=== PATIENT | female | born 1960 | race Caucasian/White ===

== ENCOUNTER 2017-07-05 09:53 | Day surgery (SDC) | payer MEDICARE ==
[~2017-07-05] VITALS: Ht 162.6 cm; Wt 79.6 kg
[~2017-07-05 09:53] MED LIST: Bactrim 400-801 EACH PO; DICL25ER; GABA300; HYDR25SUP PR; LEVSOD137 PO; LEVSOD150 PO; Mucinex600 MG PO; Norco 5-325 Ta1 EACH PO; SIME80CH PO
[2017-07-05] MEDS ORDERED: GABA100 (10:57)
== END 2017-07-05 12:38 | disposition home or self-care (01) ==
LOC: ORSCSDS 09:53
PROVIDERS: Surgery
PROC: 0DJD8ZZ Inspection of Lower Intestinal Tract, Via Natural or Artificial Opening Endoscopic (ICD-10-PCS; principal; 2017-07-05 11:00)
DX: Z12.11 Encounter for screening for malignant neoplasm of colon (principal); K57.30 Diverticulosis of large intestine without perforation or abscess without bleeding; Z86.010 Personal history of colon polyps; J44.9 Chronic obstructive pulmonary disease, unspecified; F32.89 Other specified depressive episodes; E03.9 Hypothyroidism, unspecified; Z79.899 Other long term (current) drug therapy

== ENCOUNTER 2017-11-09 13:25 | Emergency (ER) | payer MEDICARE ==
[~2017-11-09] VITALS: Ht 162.6 cm; Wt 80.3 kg
[~2017-11-09 13:25] MED LIST changes: +GABA100
[2017-11-09] MEDS ORDERED: BACL10 PO (13:38)
[2017-11-09] MEDS ORDERED: Norco 5-325 Ta1 EACH PO (15:09)
[2017-11-09] MEDS ORDERED: Colace100 MG PO (15:09)
== END 2017-11-09 15:14 | disposition home or self-care (01) ==
LOC: ER 13:25
DX: S52.572A Other intraarticular fracture of lower end of left radius, initial encounter for closed fracture (principal); W11.XXXA Fall on and from ladder, initial encounter; Z91.011 Allergy to milk products; Z91.048 Other nonmedicinal substance allergy status; Z88.1 Allergy status to other antibiotic agents; Z88.8 Allergy status to other drugs, medicaments and biological substances; Z79.899 Other long term (current) drug therapy; Z87.891 Personal history of nicotine dependence
CPT/HCPCS: 29105; 73080; 73110; 99283-25

== ENCOUNTER 2020-08-19 18:50 | Emergency (ER) | payer MEDICARE ==
[~2020-08-19] VITALS: Ht 165.1 cm; Wt 78.9 kg
[~2020-08-19 18:50] MED LIST changes: +BACL10 PO; +Colace100 MG PO; -GABA100; +GABA100 PO
[2020-08-19] MEDS ORDERED: TOPI25 PO (20:01)
[2020-08-19] MEDS ORDERED: METF500 PO (20:02)
[2020-08-19] MEDS ORDERED: ACTOS PO (20:02)
[2020-08-19 21:06] LABS: BASOPHILS PERCENT AUTO 1 % (0-2); EOSINOPHILS ABSOLUTE AUTO 0.03 K/mm3 (0.00-0.68); EOSINOPHILS PERCENT AUTO 0 % (0-6); Hematocrit 48.5 % (33.0-51.0); Hemoglobin 16.7 g/dL (11.5-16.0); Mean Corpuscular HGB 30.8 pg (26.0-34.0); Mean Corpuscular HGB Conc 34.4 g/dL (31.5-36.5); Mean Corpuscular Volume 89 fL (80-100); Mean Platelet Volume 10.5 fL (9.1-12.4); Platelet Count 315 K/mm3 (150-400); RDW Coefficient Variation 13.6 % (11.7-14.2); Red Blood Cell Count 5.43 M/mm3 (3.80-5.20); White Blood Cell Count 15.06 K/mm3 (4.00-11.30)
[2020-08-19 21:08] LABS: IMMATURE GRAN ABSOLUTE AUTO 0.05 K/mm3 (0.00-0.10); IMMATURE GRAN PERCENT AUTO 0 % (0-1); LYMPHOCYTES ABSOLUTE AUTO 4.13 K/mm3 (0.84-5.20); LYMPHOCYTES PERCENT AUTO 27 % (21-46); MONOCYTES ABSOLUTE AUTO 1.61 K/mm3 (0.16-1.47); MONOCYTES PERCENT AUTO 11 % (4-13); NEUTROPHILS ABSOLUTE AUTO 9.14 K/mm3 (1.96-9.15); NEUTROPHILS PERCENT AUTO 61 % (41-73)
[2020-08-19 21:29] LABS: Alanine Aminotransfer (ALT/SGP 113 U/L (12-78); Albumin, Blood 4.1 g/dL (3.4-5.0); Albumin/Globulin Ratio 1.1 (0.8-1.8); Alk Phos 109 U/L (50-136); Anion Gap 6 mmol/L (6-16); Aspartate Aminotrans (AST/SGOT 61 U/L (12-37); Bilirubin, Total 0.5 mg/dL (0.1-1.0); Blood Urea Nitrogen 19 mg/dL (8-24); Bun/Creatinine Ratio 26.8 (12.0-20.0); CO2, Blood 27 mmol/L (21-32); Calcium, Blood 8.6 mg/dL (8.5-10.1); Chloride, Blood 109 mmol/L (98-108); Creatinine, Blood 0.71 mg/dL (0.40-1.00); Globulin, Blood 3.8 g/dL (2.2-4.0); Glomerular Filtration Rate >60 (60-); Glucose, Blood 107 mg/dL (70-99); Sodium, Blood 142 mmol/L (136-145); Total Protein, Blood 7.9 g/dL (6.4-8.2)
== END 2020-08-20 00:49 | disposition short-term general hospital (02) ==
LOC: ER 18:50
PROVIDERS: Emergency Medicine
DX: G93.89 Other specified disorders of brain (principal); R60.9 Edema, unspecified; Z79.899 Other long term (current) drug therapy
CPT/HCPCS: 70450; 80053; 85025; 96374; 96375; 99285-25; A9270-GY; J1100; J1885; J2765

== ENCOUNTER 2020-11-22 14:18 | Inpatient (IN) | payer MEDICARE ==
[~2020-11-22] VITALS: Ht 172.7 cm; Wt 90.7 kg
[~2020-11-22 14:18] MED LIST changes: +ACTOS PO; +METF500 PO; +TOPI25 PO
[2020-11-22 18:17] LABS: BASOPHILS ABSOLUTE AUTO 0.03 K/mm3 (0.00-0.23); BASOPHILS PERCENT AUTO 0 % (0-2); EOSINOPHILS ABSOLUTE AUTO 0.01 K/mm3 (0.00-0.68); EOSINOPHILS PERCENT AUTO 0 % (0-6); Hematocrit 41.3 % (33.0-51.0); Hemoglobin 13.8 g/dL (11.5-16.0); IMMATURE GRAN ABSOLUTE AUTO 0.07 K/mm3 (0.00-0.10); IMMATURE GRAN PERCENT AUTO 0 % (0-1); LYMPHOCYTES ABSOLUTE AUTO 0.77 K/mm3 (0.84-5.20); LYMPHOCYTES PERCENT AUTO 5 % (21-46); MONOCYTES ABSOLUTE AUTO 1.48 K/mm3 (0.16-1.47); MONOCYTES PERCENT AUTO 9 % (4-13); Mean Corpuscular HGB 29.7 pg (26.0-34.0); Mean Corpuscular HGB Conc 33.4 g/dL (31.5-36.5); Mean Corpuscular Volume 89 fL (80-100); Mean Platelet Volume 9.8 fL (9.1-12.4); NEUTROPHILS ABSOLUTE AUTO 14.38 K/mm3 (1.96-9.15); NEUTROPHILS PERCENT AUTO 86 % (41-73); Platelet Count 166 K/mm3 (150-400); RDW Coefficient Variation 13.9 % (11.7-14.2); RDW Standard Deviation 45.1 fL (35.1-46.3); Red Blood Cell Count 4.65 M/mm3 (3.80-5.20); White Blood Cell Count 16.74 K/mm3 (4.00-11.30)
[2020-11-22 18:33] LABS: Alanine Aminotransfer (ALT/SGP 71 U/L (12-78); Albumin, Blood 3.4 g/dL (3.4-5.0); Albumin/Globulin Ratio 1.1 (0.8-1.8); Alk Phos 86 U/L (50-136); Anion Gap 4 mmol/L (6-16); Aspartate Aminotrans (AST/SGOT 37 U/L (12-37); Bilirubin, Total 0.4 mg/dL (0.1-1.0); Blood Urea Nitrogen 12 mg/dL (8-24); Bun/Creatinine Ratio 22.5 (12.0-20.0); CO2, Blood 27 mmol/L (21-32); Calcium, Blood 8.5 mg/dL (8.5-10.1); Chloride, Blood 111 mmol/L (98-108); Creatinine, Blood 0.53 mg/dL (0.40-1.00); Globulin, Blood 3.2 g/dL (2.2-4.0); Glomerular Filtration Rate >60 (60-); Glucose, Blood 113 mg/dL (70-99); Potassium, Blood 3.8 mmol/L (3.5-5.5); Sodium, Blood 142 mmol/L (136-145); Total Protein, Blood 6.6 g/dL (6.4-8.2)
[2020-11-22 21:04] LABS: Magnesium, Blood 1.9 mg/dL (1.6-2.4)
[2020-11-22 22:18] LABS: Source, Urine Catheter
[2020-11-22 22:20] LABS: Bilirubin, Urine Neg (Neg); Blood, Urine 1+ (Neg); Glucose Qualitative, Urine 2+ (Neg); Ketones, Urine 3+ (Neg); Leukocyte Esterase, Urine Neg (Neg); Nitrite, Urine Neg (Neg); Protein, Urine 1+ (Neg); Urobilinogen, Urine NORM (Normal)
[2020-11-22 22:40] LABS: Appearance, Urine Clear (Clear); Color, Urine Yellow (P-Yellow)
[2020-11-22 22:41] LABS: Amorphous Light (0-Heavy); Bacteria Rare /hpf; Red Blood Cells, Urine 0-2 /hpf (0-2); Squamous Epithelial Cells Mod /hpf (Few); U Amphetamine Screen Not Detected; U Barbituate Screen Not Detected; U Benzodiazapine Screen DETECTED; U Buprenorphine Screen Not Detected; U Cannabinoids Screen DETECTED; U Cocaine Screen Not Detected; U Methadone Screen Not Detected; U Methamphetamine Screen Not Detected; U Opiates Screen Not Detected; U Oxycodone Screen Not Detected; U Phencyclidine Screen Not Detected; U Propoxyphene Screen Not Detected; White Blood Cells, Urine Rare /hpf (0-5)
[2020-11-23 03:51] LABS: Hematocrit 38.8 % (33.0-51.0); Hemoglobin 12.9 g/dL (11.5-16.0); Mean Corpuscular HGB 29.5 pg (26.0-34.0); Mean Corpuscular HGB Conc 33.2 g/dL (31.5-36.5); Mean Corpuscular Volume 89 fL (80-100); Mean Platelet Volume 10.3 fL (9.1-12.4); Platelet Count 154 K/mm3 (150-400); RDW Coefficient Variation 13.9 % (11.7-14.2); RDW Standard Deviation 45.1 fL (35.1-46.3); Red Blood Cell Count 4.37 M/mm3 (3.80-5.20); White Blood Cell Count 12.86 K/mm3 (4.00-11.30)
[2020-11-23 04:17] LABS: Anion Gap 6 mmol/L (6-16); Blood Urea Nitrogen 13 mg/dL (8-24); CO2, Blood 26 mmol/L (21-32); Calcium, Blood 8.6 mg/dL (8.5-10.1); Chloride, Blood 110 mmol/L (98-108); Creatinine, Blood 0.59 mg/dL (0.40-1.00); Glomerular Filtration Rate >60 (60-); Glucose, Blood 95 mg/dL (70-99); Potassium, Blood 3.7 mmol/L (3.5-5.5); Sodium, Blood 142 mmol/L (136-145)
--- NOTE | 2020-11-23 06:17 | NUR ---
SHIFT SUMMARY PATIENT ADMITTED TO FLOOR AT APPROXIMETLY 2129. AMS WITH PATIENT INTERMITTENTLY RESTLESS/THRASHING IN BED AND OTHER TIMES SNORING SLEEPING HARD. ORIENTED X2-3 AND FOLLOWING SOME COMMANDS BUT NOT MOST. DOES NOT KNOW LIMITATIONS. PRN ATIVAN X1 GIVEN FOR AGITATION AND RESTRAINTS APPLIED PATIENT NOT COOPERATIVE AND TRYING TO GET OUT OF BED REPEATEDLY. MANSOOR VEST STILL IN PLACE AT THIS TIME. NAGY. NEURO CHECKS WITH NO ACUTE CHANGES. SEIZURE PRECAUTIONS IN PLACE. VSS. ON RA. NSR ON THE MONITOR. GUTIERREZ IN PLACE DRAINING TO GRAVITY. HAS NOT BEEN ALERT ENOUGH TO TRIAL SWALLOW TEST OF YET. LR INFUSING PER ORDER.NO ACUTE CONCERNS AT THIS TIME. WILL CONTINUE TO MONITOR UNTIL REPORT GIVEN TO DAYSHIFT RN.
--- NOTE | 2020-11-23 18:48 | NUR ---
PT REQUESTED TO HAVE GUTIERREZ D/C'ED, DR. DUARTE PROVIDED SUPPORT FOR THIS INTERVENTION, GUTIERREZ D/C'ED AT 0923, PT PASSED BEDSIDE SWALLOW SCREEN AT 0930 AND TOLERATED THIN LIQUIDS AND WHOLE PO PILLS, PT NEURO STATUS ASSESSED Q4H RECORDED IN EHR, PT'S SON CALLED AT 1051 AND 1804 FOR UPDATES AND REPORTS NO ADDITIONAL QUESTIONS AT THIS TIME, PT'S MANSOOR GARCIA D/C'ED AT 1815, PT'S VSS, PT NAGY AND USES BEDPAN MODERATELY APPROPRIATELY, PT USES CALL LIGHT APPROPRIATELY, PT DENIES ADDITIONAL CONCERNS AT THIS TIME
--- NOTE | 2020-11-24 05:02 | NUR ---
SHIFT SUMMARY PATIENT FOUND TO BE VERY DROWSY BUT ORIENTED X3, COMPLIANT WITH CARE AND FOLLOWING COMMANDS. STILL FORGETFUL AT TIMES AND IMPULSIVELY GETS UP TO PEE OFTEN. STEADY ON HER FEET.NO DIZZINESS OR VISION ISSUES. COMPLAINTS OF LEFT SIDE HEADACHE WITH GOOD RELIEF WITH NAPROXEN X1. LEFT SIDED FACIAL DROOP IMPROVING. NEURO CHECKS Q4H UNCHANGED. VSS. ON RA. NSR ON THE MONITOR. ENCOURAGING ORAL INTAKE WHEN ALERT. TAKING ORAL MEDS WITHOUT ISSUE. URGENCY AND FREQUENCY OF URINATION NOTED. UP WITH [facility]BA TO [facility] [place]. SHE IS HOPING TO GO HOME TODAY. NO ACUTE CONCERNS AT THIS TIME. WILL CONTINUE TO MONITOR UNTIL REPORT GIVEN TO JOSUE MENDENHALL.
[2020-11-24] MEDS ORDERED: LEVE500 PO (10:35)
[2020-11-24] MEDS ORDERED: Diclofenac Sodi50 MG PO (10:35)
[2020-11-24] MEDS ORDERED: PHARBEDRYL PO (10:36)
[2020-11-24] MEDS ORDERED: HYDHCL25 PO (11:37)
--- NOTE | 2020-11-24 12:42 | NUR ---
DISCHARGE SUMMARY PT A&OX4, VSS, SHOWERED TODAY, RHETT PO INTAKE, VOIDING WELL, INDEPENDENT IN ROOM. LEFT FLOOR VIA WC WITH VBA DEVELOPER, TO GO HOME WITH SON, WITH ALL PERSONAL POSSESSIONS INCLUDING DC PACKET. SCRIPTS CALLED IN TO PHARMACIST BY NADIR MENDENHALL. DC INSTRUCTIONS PROVIDED. PT REP UNDERSTANDING THOSE INSTRUCTIONS INCLUDING FU WITH [facility] , AND FU WITH PCP. IV DC'D.
== END 2020-11-24 12:38 | disposition home or self-care (01) | DRG 101 ==
LOC: ER 14:18 → PCU 14:19
PROVIDERS: Emergency Medicine; Nurse Practitioner Acute Care; ADMIT Internal Medicine
DX: G40.909 Epilepsy, unspecified, not intractable, without status epilepticus (principal); R65.10 Systemic inflammatory response syndrome (SIRS) of non-infectious origin without acute organ dysfunction; E11.9 Type 2 diabetes mellitus without complications; E89.0 Postprocedural hypothyroidism; Z79.84 Long term (current) use of oral hypoglycemic drugs; Z90.710 Acquired absence of both cervix and uterus; Z98.890 Other specified postprocedural states; Z88.1 Allergy status to other antibiotic agents; Z91.011 Allergy to milk products; Z91.048 Other nonmedicinal substance allergy status; Z79.899 Other long term (current) drug therapy
CPT/HCPCS: 36415; 51702; 70450; 71045; 80048; 80053; 81001; 82947; 83735; 84443; 85025; 85027; 93005; 93010; 96365; 96375; 96376; 99285-25; A9270; G0378; J1885; J1953; J2060; J7120

== ENCOUNTER 2021-02-14 10:33 | Inpatient (IN) | payer MEDICARE ==
[~2021-02-14] VITALS: Ht 165.1 cm; Wt 67.0 kg
[~2021-02-14 10:33] MED LIST changes: +Diclofenac Sodi50 MG PO; +HYDHCL25 PO; +LEVE500 PO; +PHARBEDRYL PO
[2021-02-14 11:57] LABS: BASOPHILS ABSOLUTE AUTO 0.04 K/mm3 (0.00-0.23); BASOPHILS PERCENT AUTO 0 % (0-2); EOSINOPHILS ABSOLUTE AUTO 0.03 K/mm3 (0.00-0.68); EOSINOPHILS PERCENT AUTO 0 % (0-6); Hematocrit 48.3 % (33.0-51.0); Hemoglobin 16.5 g/dL (11.5-16.0); IMMATURE GRAN ABSOLUTE AUTO 0.23 K/mm3 (0.00-0.10); IMMATURE GRAN PERCENT AUTO 2 % (0-1); LYMPHOCYTES ABSOLUTE AUTO 0.91 K/mm3 (0.84-5.20); LYMPHOCYTES PERCENT AUTO 7 % (21-46); MONOCYTES ABSOLUTE AUTO 0.94 K/mm3 (0.16-1.47); MONOCYTES PERCENT AUTO 7 % (4-13); Mean Corpuscular HGB 30.5 pg (26.0-34.0); Mean Corpuscular HGB Conc 34.2 g/dL (31.5-36.5); Mean Corpuscular Volume 89 fL (80-100); Mean Platelet Volume 10.1 fL (9.1-12.4); NEUTROPHILS ABSOLUTE AUTO 11.38 K/mm3 (1.96-9.15); NEUTROPHILS PERCENT AUTO 84 % (41-73); Platelet Count 277 K/mm3 (150-400); RDW Coefficient Variation 14.9 % (11.7-14.2); RDW Standard Deviation 48.7 fL (35.1-46.3); Red Blood Cell Count 5.41 M/mm3 (3.80-5.20); White Blood Cell Count 13.53 K/mm3 (4.00-11.30)
[2021-02-14 12:08] LABS: Alanine Aminotransfer (ALT/SGP 69 U/L (12-78); Albumin, Blood 3.6 g/dL (3.4-5.0); Albumin/Globulin Ratio 0.9 (0.8-1.8); Alk Phos 73 U/L (50-136); Anion Gap 8 mmol/L (6-16); Aspartate Aminotrans (AST/SGOT 29 U/L (12-37); Bilirubin, Total 0.6 mg/dL (0.1-1.0); Blood Urea Nitrogen 24 mg/dL (8-24); Bun/Creatinine Ratio 46.8 (12.0-20.0); CO2, Blood 28 mmol/L (21-32); Calcium, Blood 9.3 mg/dL (8.5-10.1); Chloride, Blood 105 mmol/L (98-108); Creatinine, Blood 0.51 mg/dL (0.40-1.00); Globulin, Blood 3.8 g/dL (2.2-4.0); Glomerular Filtration Rate >60 (60-); Glucose, Blood 157 mg/dL (70-99); Potassium, Blood 4.2 mmol/L (3.5-5.5); Sodium, Blood 141 mmol/L (136-145); Total Protein, Blood 7.4 g/dL (6.4-8.2)
[2021-02-14 14:09] LABS: Source, Urine Voided
[2021-02-14 14:15] LABS: Appearance, Urine Clear (Clear); Bilirubin, Urine Neg (Neg); Blood, Urine Neg (Neg); Color, Urine Yellow (P-Yellow); Glucose Qualitative, Urine Neg (Neg); Ketones, Urine Neg (Neg); Leukocyte Esterase, Urine 1+ (Neg); Nitrite, Urine Neg (Neg); Protein, Urine 1+ (Neg); Specific Gravity, Urine 1.025 (1.003-1.022); Urobilinogen, Urine NORM (Normal)
[2021-02-14 14:23] LABS: Bacteria Many /hpf
[2021-02-14 14:24] LABS: Squamous Epithelial Cells Mod /hpf (Few)
[2021-02-14 14:27] LABS: Red Blood Cells, Urine 0-2 /hpf (0-2)
[2021-02-14 14:39] LABS: SARS-Cov-2 (COVID-19) PCR, MMC NEGATIVE (NEGATIVE)
[2021-02-14] MEDS ORDERED: DEXA4 (14:45)
[2021-02-14] MEDS ORDERED: PIOG30 (14:45)
[2021-02-14] MEDS ORDERED: TEMODAR (14:46)
[2021-02-14] MEDS ORDERED: 1/2 NS 250ml250 ML (14:46)
[2021-02-14] MEDS ORDERED: ONDA4 (14:46)
--- NOTE | 2021-02-15 01:59 | NUR ---
CODE STATUS CHANGE PRIOR TO PLACING DNR BAND ON PT, RN CLARIFIED WITH PT WHETHER SHE WOULD LIKE CHEST COMPRESSIONS OR SPECIFIC INTERVENTIONS. PT STATED THAT SHE WANTS COMPRESSIONS, BUT DOES NOT WANT TO BE INTUBATED. CODE STATUS UPDATED.
--- NOTE | 2021-02-15 02:00 | NUR ---
ADMISSION NOTE PT ARRIVES TO MEDICAL FLOOR AT 20:00 02/14 - WITH THE HELP OF A TRANSFER SHEET AND TWO STAFF MEMBERS, PT IS TRANSFERRED FROM [facility] TO MEDICAL BED. PT HAS FLACCID LEFT LEG, AND WEAK LEFT ARM. SHE IS ALERT & ORIENTED X4, HOWEVER SHE IS IMPULSIVE WITH TRANSFERS. PT IS MOTIVATED TO BE INDEPENDENT, BUT URINARY URGENCY AND FREQUENCY MAKE HER TRY TO TRANSFER WITHOUT WAITING FOR STAFF TO ASSIST. BED ALARM IS ON. PT EDUCATED THAT SHE NEEDS TO USE CALL LIGHT AND FOLLOW CUES FROM STAFF IN ORDER TO REMAIN SAFE DURING TRANSERS. PT SLEPT MOST OF THE SHIFT SO FAR, WILL CONTINUE TO MONITOR.
--- NOTE | 2021-02-15 03:54 | NUR ---
SHIFT SUMMARY PT WITH CONTINUED URINARY FREQUENCY AND URGENCY. DENIES DYSURIA. C/O PAIN TO HER BACK AND LEFT SIDE, WHICH WAS INJURED IN FALL EXECUTIVE CANDIDATE DEVELOPER. PT STATES THAT SHE HAS NO HOME MEDICATIONS WITH HER, NOTHING TO SEND TO PHARMACY FOR VERIFICATION. IS USING CALL LIGHT TO CALL FOR ASSISTANCE WITH BSC. NEURO CHECKS Q 4 HOURS SHOW LEFT LEG PROGRESSED FROM FLACCID TO LIMITED FLEXION/EXTENSION, STILL UNABLE TO BEAR WEIGHT. LEFT ARM IS WEAK. VSS.
[2021-02-15 05:30] LABS: Thyroid Stimulating Hormone 0.023 uIU/mL (0.360-4.800); Thyroxine (T4) 12.1 ug/dL (4.8-13.9)
--- NOTE | 2021-02-15 16:48 | NUR ---
SHIFT SUMMARY PT AWAKE AT START OF SHIFT. A&O, BUT VERY IMPULSIVE. PT ADMITTED ON NOC SHIFT FOR STROKE SHOWING L SIDE WEAKNESS TO BOTH EXTREMITIES WITH L FACIAL DROOP. BRUISING TO L HIP AND BACK FROM FALLS AT HOME. PER REPORT, PT LIVES WITH SON, WHO NOW HAS COVID. PT ABLE TO WORK WITH P/T TODAY BUT DOES NOT USE L LEG AT ALL TO MOVE OR BEAR WT. PT HAS SPASTIC MOTOR SKILLS TO L ARM AND L LEG. WANTING TO GO HOME ALL DAY. FREQUENTLY OOB, TRYING TO GET UP AND CONSTANTLY SETTING OFF BED ALARM. PT VERY IMPULSIVE AND FAST; PT WILL NOT WAIT FOR ASSISTANCE FOR EVEN ONE SEC. DR GUADALUPE JUST NOTIFIED AGAIN FOR VEST RESTRAINT FOR PT SAFETY. PT IS 2P ASSIST TO BSC AND BACK TO BED D/T L LEG. VEST RESTRAINT PLACED AFTER RETURNING TO BED. RESTING QUIETLY WITH CALL LT IN REACH. BED ALARM REMAINS ON FOR SAFETY.
--- NOTE | 2021-02-16 05:29 | NUR ---
SHIFT SUMMARY PT IN [facility] ([place], [place]). AT 0200, RN RESPONDED TO BED ALARM AND DISCOVERED PT HAD PULLED THE BSC CLOSER TO BED AND WAS ATTEMPTING TO EXIT THE BED. WHEN REMINDED TO USE THE CALL LIGHT AND WAIT FOR STAFF TO RESPOND, PT STATED SHE DIDN'T REMEMBER TO CALL. PT REQUIRES RESTRAINT TO REMAIN SAFE, IMPULSIVITY MAKES HER AT HIGH RISK FOR FALLS. LEFT ARM IS WEAK, LEFT LEG IS FLACCID. SHE IS ORIENTED TO SELF, FAMILY, AND LOCATION. NOT ORIENTED TO HER OWN ABILITIES. PT SLEPT MOST OF THE SHIFT. BED ALARM ON, IN LOWEST POSITION, CALL LIGHT WITHIN REACH.
--- NOTE | 2021-02-16 11:18 | NUR ---
NOTIFIED DR. GUADALUPE OF URINE CX REPORT. NO NEW ORDERS AT THIS TIME.
--- NOTE | 2021-02-16 17:19 | NUR ---
Pt currently lives at home, has a boyfriend and a best freind to assist her with ADL's. She is s/p stoke with plan to d/c to an IRU to gain exersize and possibly regain L sided strength and balance, including ambulation. So far, unsure if she'll be doing rehab at a local facility so she won't be so far away. Hower, she is determined to go, and gain strengs. Pt is pleasant, cooperative with care. Her friend is present for this visit, and assures me that pt will have her help when she returns home. Pt has DNR status.
--- NOTE | 2021-02-16 18:29 | NUR ---
SHIFT SUMMARY: PT A/O ONE PERSON ASSIST WITH GAIT BELT/WALKER AND CUES TO LIFT LEFT FOOT AND SLOW DOWN WALKING SO LEFT FOOT DOES NOT DRAG BEHIND HER. PT ABLE TO UNDERSTAND COMMANDS AND FOLLOWS COMMANDS. SHE DOES HAVE FREQUENCY WITH URINATION AND IS UP A LOT T/OUT THE DAY AND NEEDS FREQUENT REMINDERS TO USE CALL LIGHT. PT HAS BEEN OUT OF VEST RESTRAINT SINCE 9:45 AM TODAY. URINE IS CLEAR YELLOW. PT EATING WELL WITH NO S/S OF DIFFICULTY CHEWING OR SWALLOWING FOOD OR MEDICATIONS. NO OTHER ACUTE CONCERNS AT THIS TIME.
--- NOTE | 2021-02-17 04:40 | NUR ---
END OF SHIFT SUMMARY: Pt alert and oriented x4. Impulsive, gets out of bed without calling. Still having frequency. L sided weakness, making pt unsteady on feet. One person assist to bathroom or BSC. No complaints of pain tonight. No acute events overnight. Call light within reach. Taking pt to bathroom often to minimize pt getting out of bed. Bed in lowest position. Seizure precautions in place. TM
--- NOTE | 2021-02-17 10:30 | NUR ---
OFFERED FLU VACCINE TO PT AND SHE REFUSED VACCINE.
[2021-02-17 14:54] LABS: CHOL/HDL RATIO 2.2; Cholesterol 111 mg/dL (50-200); HDL Cholesterol 50 mg/dL (>39); LDL/HDL RATIO 0.9; Low Density Lipoprotein Chol 43 mg/dL (0-110); Triglycerides 88 mg/dL (30-160); Very Low Density Lipoprot Chol 17 mg/dL (6-32)
--- NOTE | 2021-02-17 17:29 | NUR ---
SHIFT SUMMARY: PT A/O X 3 STANDBY ASSIST WITH WALKER AND GAIT BELT. PT LESS IMPULSIVE TODAY AND USING CALL LIGHT MORE APPROPRIATELY. CONTINUES TO NEED TO USE BATHROOM TO URINATE EVERY 30 MIN TO ONE HOUR. ENCOOURAGING HER TO DRINK FLUIDS. SHE DENIES SYMTPOMS OF URGENCY, BURNING, PAIN WITH URINATION. ABD NON DISTENDED. PT REMEMBERING TO LIFT HER LEFT FOOT AND SLOW HER WALKING SO SHE IS NOT SO UNSTEADY ON HER FEET. SHE HAS BEEN FOLLOWING DIRECTIONS WELL TODAY. PT EAGER TO BE DISCHARGED.
--- NOTE | 2021-02-18 04:14 | NUR ---
END OF SHIFT SUMMARY: No acute events overnight. Pt is still impulsive and getting out of bed without using call light. Reinforced education on importance of waiting for help before getting out of bed, demonstrated understanding, bed alarm in place, call light within reach. Bed in lowest position. VSS.
--- NOTE | 2021-02-18 18:52 | NUR ---
PATIENT IS ALERT AND ORIENTED X 4. SHE DENIES PAIN. VERY SPONTANEOUS WITH GETTING OUT OOB WITHOUT ASSIST. BED ALARM ON. SHE IS AMBULATORY WITH FRONT WHEEL WALKER AND STAND BY ASSIST. SHE IS CALM AND COOPERATIVE. SHE DOES NOT APPEAR TO BE IN ACUTE DISTRESS. SHE HAD AN UNEVENTFUL DAY.
--- NOTE | 2021-02-19 05:24 | NUR ---
END OF SHIFT SUMMARY: Pt A&Ox3. Requiring frequent reinforcement of teaching. Pt is a one person assist. Frequently forgets to ask for help beofe getting up, pt teaching provided. Rounding on pt often to take her to bathroom to minimize episodes of getting up without help. Pt is pleasant. No new complaints overnight. Call light within reach, bed in lowest position. Continue to minitor.
--- NOTE | 2021-02-19 17:28 | NUR ---
SHIFT SUMMARY PATIENT IS ALERT AND ORIENTED X3. PATIENT IS VERY IMPULSIVE AND GETS OUT OF BED FREQUENTLY WITHOUT USING CALL LIGHT. PATIENT HAS LEFT SIDED WEAKNESS FROM STROKE. PATIENT IS A ONE PERSON ASSIST TO BATHROOM. PATIENT IS PLEASENT AND COOPERATIVE WITH CARE. PLAN IS FOR PATIENT TO DISCHARGE AND TRANSFER TO INPATIENT REHAB IN [place] TOMORROW. NO ACUTE EVENTS DURING SHIFT. WILL CONTINUE TO MONITOR UNTIL SHIFT CHANGE.
[2021-02-19 18:16] LABS: SARS-Cov-2 (COVID-19) PCR, MMC NEGATIVE (NEGATIVE)
--- NOTE | 2021-02-20 06:36 | NUR ---
END OF SHIFT SUMMARY: Pt slept better tonight. still having episodes of frequency and urgency. Still forgetting to use call light before getting up. Pt teaching given. Uneventful night. Call light within reach, bed in lowest position. Continue to monitor.
[2021-02-20] MEDS ORDERED: ACET500 PO (08:42)
[2021-02-20] MEDS ORDERED: ASPI81CH PO (08:42)
[2021-02-20] MEDS ORDERED: INSULANPEN SC (08:43)
[2021-02-20] MEDS ORDERED: HUMALOG KW100 UNIT/1 SC (08:45)
[2021-02-20] MEDS ORDERED: PRAV20 PO (08:45)
--- NOTE | 2021-02-20 11:25 | NUR ---
PT ALERT BUT NOT ORIENTED,PT IS VERY IMPULSIVE,PT UP TO BSC WITH WALKER AND 1 ASSIST.PT DENIES PAIN,N/V,SOB.PT HAS NO ACUTES EVENT T/O SHIFT.PT DISCHARGE ALL BELONGINGS PACK PT TRANSPORTED OUT VIA WHEELCHAIR,CALLED AND GAVE REPORT TO YESSICA
== END 2021-02-20 11:00 | DRG 64 ==
LOC: ER 10:33 → MEDS 10:34 → ER 20:01 → MEDS 20:08
PROVIDERS: Emergency Medicine; Family Medicine; Physician Assistant; ADMIT Internal Medicine
DX: I63.81 Other cerebral infarction due to occlusion or stenosis of small artery (principal); G93.6 Cerebral edema; G81.94 Hemiplegia, unspecified affecting left nondominant side; E11.9 Type 2 diabetes mellitus without complications; G40.909 Epilepsy, unspecified, not intractable, without status epilepticus; Z90.710 Acquired absence of both cervix and uterus; Z98.890 Other specified postprocedural states; Z66 Do not resuscitate; Z20.822 Contact with and (suspected) exposure to COVID-19; R91.1 Solitary pulmonary nodule; R29.810 Facial weakness; E89.0 Postprocedural hypothyroidism; Z85.850 Personal history of malignant neoplasm of thyroid; Z90.49 Acquired absence of other specified parts of digestive tract; Z91.040 Latex allergy status; Z88.1 Allergy status to other antibiotic agents; Z91.011 Allergy to milk products; Z79.899 Other long term (current) drug therapy; Z79.84 Long term (current) use of oral hypoglycemic drugs
CPT/HCPCS: 36415; 70450; 70496; 70498; 70551; 71045; 71250; 80053; 80061; 81001; 82947; 84145; 84436; 84443; 84484; 85025; 87077; 87086; 87186; 92507; 92523; 92610; 93005; 93010; 93306; 97110; 97112; 97116; 97129; 97130; 97162; 97166; 97530; 97535; 99285-25; A9270; G0378; J1650; J1815; J7030; Q9967; U0004

== ENCOUNTER 2021-04-02 17:13 | Emergency (ER) | payer MEDICARE, OTHER ==
[~2021-04-02] VITALS: Ht 167.6 cm; Wt 68.0 kg
[~2021-04-02 17:13] MED LIST changes: +1/2 NS 250ml250 ML; +ACET500 PO; +ASPI81CH PO; +DEXA4; +HUMALOG KW100 UNIT/1 SC; +INSULANPEN SC; +ONDA4; +PIOG30; +PRAV20 PO; +TEMODAR
== END 2021-04-02 20:10 | disposition home or self-care (01) ==
LOC: ER 17:13
DX: R51.9 Headache, unspecified (principal); Z88.8 Allergy status to other drugs, medicaments and biological substances; Z91.048 Other nonmedicinal substance allergy status; Z91.011 Allergy to milk products; Z79.899 Other long term (current) drug therapy; Z79.84 Long term (current) use of oral hypoglycemic drugs; Z79.4 Long term (current) use of insulin; E11.9 Type 2 diabetes mellitus without complications; Z87.891 Personal history of nicotine dependence
CPT/HCPCS: 70450; 96372; 99284-25; J3030

== ENCOUNTER 2021-04-22 21:37 | Emergency (ER) | payer MEDICARE, OTHER ==
[~2021-04-22] VITALS: Ht 167.6 cm; Wt 68.0 kg
[2021-04-22 23:16] LABS: BASOPHILS ABSOLUTE AUTO 0.07 K/mm3 (0.00-0.23); BASOPHILS PERCENT AUTO 1 % (0-2); EOSINOPHILS ABSOLUTE AUTO 0.01 K/mm3 (0.00-0.68); EOSINOPHILS PERCENT AUTO 0 % (0-6); IMMATURE GRAN ABSOLUTE AUTO 0.33 K/mm3 (0.00-0.10); IMMATURE GRAN PERCENT AUTO 2 % (0-1); LYMPHOCYTES ABSOLUTE AUTO 1.14 K/mm3 (0.84-5.20); LYMPHOCYTES PERCENT AUTO 7 % (21-46); MONOCYTES PERCENT AUTO 8 % (4-13); Mean Corpuscular HGB Conc 34.8 g/dL (31.5-36.5); Mean Corpuscular Volume 92 fL (80-100); NEUTROPHILS ABSOLUTE AUTO 12.58 K/mm3 (1.96-9.15); NEUTROPHILS PERCENT AUTO 82 % (41-73); Platelet Count 261 K/mm3 (150-400); RDW Coefficient Variation 13.8 % (11.7-14.2); RDW Standard Deviation 46.8 fL (35.1-46.3); White Blood Cell Count 15.33 K/mm3 (4.00-11.30)
[2021-04-22 23:35] LABS: Alanine Aminotransfer (ALT/SGP 83 U/L (12-78); Albumin, Blood 3.3 g/dL (3.4-5.0); Albumin/Globulin Ratio 0.9 (0.8-1.8); Alk Phos 80 U/L (50-136); Anion Gap 9 mmol/L (6-16); Aspartate Aminotrans (AST/SGOT 44 U/L (12-37); Bilirubin, Total 0.6 mg/dL (0.1-1.0); Blood Urea Nitrogen 13 mg/dL (8-24); Bun/Creatinine Ratio 25.5 (12.0-20.0); CO2, Blood 25 mmol/L (21-32); Calcium, Blood 8.6 mg/dL (8.5-10.1); Chloride, Blood 107 mmol/L (98-108); Creatinine, Blood 0.51 mg/dL (0.40-1.00); Ethanol (Alcohol), Blood, Med <3 mg/dL; Free Thyroxine 1.07 ng/dL (0.70-1.60); Globulin, Blood 3.6 g/dL (2.2-4.0); Glomerular Filtration Rate >60 (60-); Glucose, Blood 163 mg/dL (70-99); Sodium, Blood 141 mmol/L (136-145); Total Protein, Blood 6.9 g/dL (6.4-8.2)
[2021-04-23 03:19] LABS: Source, Urine Catheter
[2021-04-23 03:23] LABS: Bilirubin, Urine Neg (Neg); Blood, Urine Neg (Neg); Glucose Qualitative, Urine Neg (Neg); Ketones, Urine Neg (Neg); Leukocyte Esterase, Urine Neg (Neg); Nitrite, Urine Neg (Neg); Protein, Urine Neg (Neg); Specific Gravity, Urine 1.015 (1.003-1.022); Urobilinogen, Urine NORM (Normal)
[2021-04-23 03:35] LABS: Appearance, Urine Clear (Clear); Color, Urine Yellow (P-Yellow)
== END 2021-04-23 03:59 | disposition home or self-care (01) ==
LOC: ER 21:37
PROVIDERS: Emergency Medicine
DX: R29.6 Repeated falls (principal); E11.9 Type 2 diabetes mellitus without complications; Z87.891 Personal history of nicotine dependence; Z79.899 Other long term (current) drug therapy; Z79.4 Long term (current) use of insulin
CPT/HCPCS: 36415; 70450; 80053; 81003; 84439; 84443; 85025; G0480

== ENCOUNTER 2021-05-03 17:47 | Emergency (ER) | payer OTHER, MEDICARE ==
[~2021-05-03] VITALS: Ht 167.6 cm; Wt 68.0 kg
[~2021-05-03 17:47] MED LIST changes: +Bactrim Ds Tab1 EACH PO; +CEPH500 PO; +MUPIROCIN1 GM TOP
[2021-05-04] MEDS ORDERED: NAPR500 PO (11:37)
== END 2021-05-03 22:24 | disposition home or self-care (01) ==
LOC: ER 17:47
DX: S09.90XA Unspecified injury of head, initial encounter (principal); F17.210 Nicotine dependence, cigarettes, uncomplicated; Z85.850 Personal history of malignant neoplasm of thyroid; Z79.82 Long term (current) use of aspirin; Z79.899 Other long term (current) drug therapy; Z79.4 Long term (current) use of insulin; Z91.011 Allergy to milk products; Z88.1 Allergy status to other antibiotic agents; Z91.048 Other nonmedicinal substance allergy status; W01.198A Fall on same level from slipping, tripping and stumbling with subsequent striking against other object, initial encounter; Z79.84 Long term (current) use of oral hypoglycemic drugs
CPT/HCPCS: 70450; 72125; 99283-25; A9270

== ENCOUNTER 2021-05-04 10:31 | Emergency (ER) | payer MEDICARE, OTHER ==
[~2021-05-04] VITALS: Ht 167.6 cm; Wt 68.0 kg
[2021-05-04] MEDS ORDERED: NAPR500 PO (11:37)
== END 2021-05-04 11:49 | disposition home or self-care (01) ==
LOC: ER 10:31
DX: S29.012A Strain of muscle and tendon of back wall of thorax, initial encounter (principal); S20.219A Contusion of unspecified front wall of thorax, initial encounter; E11.9 Type 2 diabetes mellitus without complications; F17.200 Nicotine dependence, unspecified, uncomplicated; Z91.048 Other nonmedicinal substance allergy status; Z91.011 Allergy to milk products; Z88.1 Allergy status to other antibiotic agents; Z79.84 Long term (current) use of oral hypoglycemic drugs; Z79.899 Other long term (current) drug therapy; Z79.4 Long term (current) use of insulin; W18.30XA Fall on same level, unspecified, initial encounter
CPT/HCPCS: 72070; 99284-25

== ENCOUNTER 2021-05-04 18:40 | Emergency (ER) | payer MEDICARE, OTHER ==
[~2021-05-04] VITALS: Ht 167.6 cm; Wt 69.0 kg
[~2021-05-04 18:40] MED LIST changes: +NAPR500 PO
== END 2021-05-04 23:51 | disposition home or self-care (01) ==
LOC: ER 18:40
DX: T14.8XXA Other injury of unspecified body region, initial encounter (principal); W18.30XA Fall on same level, unspecified, initial encounter; Z91.011 Allergy to milk products; Z88.8 Allergy status to other drugs, medicaments and biological substances; Z88.1 Allergy status to other antibiotic agents; Z91.048 Other nonmedicinal substance allergy status; Z79.899 Other long term (current) drug therapy; Z79.84 Long term (current) use of oral hypoglycemic drugs; Z79.82 Long term (current) use of aspirin; Z79.4 Long term (current) use of insulin; E11.9 Type 2 diabetes mellitus without complications; F17.200 Nicotine dependence, unspecified, uncomplicated
CPT/HCPCS: 71101; 72170; 99284-25

== ENCOUNTER 2021-05-10 19:13 | Emergency (ER) | payer MEDICARE, OTHER ==
[~2021-05-10] VITALS: Ht 167.6 cm; Wt 68.0 kg
[2021-05-10] MEDS ORDERED: MUPIROCIN15 GM (19:26)
[2021-05-10] MEDS ORDERED: METF500 PO (19:26)
[2021-05-10] MEDS ORDERED: DEXA4 PO (19:27)
[2021-05-10] MEDS ORDERED: ATOR40TA PO (19:27)
[2021-05-10] MEDS ORDERED: LEVE500 PO (19:28)
== END 2021-05-10 22:26 | disposition home or self-care (01) ==
LOC: ER 19:13
DX: S09.90XA Unspecified injury of head, initial encounter (principal); M54.2 Cervicalgia; M54.6 Pain in thoracic spine; E11.9 Type 2 diabetes mellitus without complications; F17.200 Nicotine dependence, unspecified, uncomplicated; Z79.899 Other long term (current) drug therapy; Z79.84 Long term (current) use of oral hypoglycemic drugs; W05.0XXA Fall from non-moving wheelchair, initial encounter
CPT/HCPCS: 70450; 72125; A9270

== ENCOUNTER 2021-05-17 14:56 | Emergency (ER) | payer OTHER, MEDICARE ==
[~2021-05-17] VITALS: Ht 167.6 cm; Wt 68.0 kg
[~2021-05-17 14:56] MED LIST changes: +ATOR40TA PO; +DEXA4 PO; +MUPIROCIN15 GM
== END 2021-05-17 20:43 | disposition home or self-care (01) ==
LOC: ER 14:56
DX: S80.211A Abrasion, right knee, initial encounter (principal); I10 Essential (primary) hypertension; I25.10 Atherosclerotic heart disease of native coronary artery without angina pectoris; I48.91 Unspecified atrial fibrillation; F17.200 Nicotine dependence, unspecified, uncomplicated; Z91.011 Allergy to milk products; Z91.048 Other nonmedicinal substance allergy status; Z88.1 Allergy status to other antibiotic agents; Z79.899 Other long term (current) drug therapy; Z79.84 Long term (current) use of oral hypoglycemic drugs; W01.0XXA Fall on same level from slipping, tripping and stumbling without subsequent striking against object, initial encounter
CPT/HCPCS: 73020; 99283-25; A9270

== ENCOUNTER 2021-05-18 21:16 | Emergency (ER) | payer MEDICARE, OTHER ==
[~2021-05-18] VITALS: Ht 170.2 cm; Wt 71.2 kg
== END 2021-05-18 23:30 | disposition home or self-care (01) ==
LOC: ER 21:16
DX: M25.512 Pain in left shoulder (principal); M54.2 Cervicalgia; R51.9 Headache, unspecified; I25.10 Atherosclerotic heart disease of native coronary artery without angina pectoris; F17.200 Nicotine dependence, unspecified, uncomplicated; I10 Essential (primary) hypertension; I48.91 Unspecified atrial fibrillation; Z79.899 Other long term (current) drug therapy; Z91.011 Allergy to milk products; Z88.1 Allergy status to other antibiotic agents; Z91.048 Other nonmedicinal substance allergy status; Z79.84 Long term (current) use of oral hypoglycemic drugs; Z86.73 Personal history of transient ischemic attack (TIA), and cerebral infarction without residual deficits; Z85.850 Personal history of malignant neoplasm of thyroid; W05.0XXA Fall from non-moving wheelchair, initial encounter
CPT/HCPCS: 70450; 72125; 73030; 99284-25; A9270; L0160